=== PATIENT | male | born 1940 | race Caucasian/White ===

== ENCOUNTER → 2019-06-07 | Outpatient (CLI) | payer OTHER, BC | LOC: RAD 14:11 | DX: J44.9 Chronic obstructive pulmonary disease, unspecified (principal); J98.4 Other disorders of lung; I51.7 Cardiomegaly ==

== ENCOUNTER → 2019-06-27 | Outpatient (CLI) | payer OTHER, BC | LOC: CAT 12:38 | DX: J43.9 Emphysema, unspecified (principal) ==

== ENCOUNTER → 2019-11-24 | Outpatient (CLI) | payer OTHER, BC | LOC: SJCVCIMAG 09:01 | DX: I45.19 Other right bundle-branch block (principal); I08.0 Rheumatic disorders of both mitral and aortic valves; I25.10 Atherosclerotic heart disease of native coronary artery without angina pectoris; E11.65 Type 2 diabetes mellitus with hyperglycemia; I11.0 Hypertensive heart disease with heart failure; I50.41 Acute combined systolic (congestive) and diastolic (congestive) heart failure; E78.00 Pure hypercholesterolemia, unspecified; J44.9 Chronic obstructive pulmonary disease, unspecified; I25.5 Ischemic cardiomyopathy ==

== ENCOUNTER → 2020-04-12 | Outpatient (CLI) | payer OTHER, BC | LOC: SJCVCIMAG 09:32 | PROVIDERS: ATTEND Internal Medicine Cardiovascular Disease | DX: I25.10 Atherosclerotic heart disease of native coronary artery without angina pectoris (principal); I49.3 Ventricular premature depolarization; R00.0 Tachycardia, unspecified; E78.00 Pure hypercholesterolemia, unspecified; E11.65 Type 2 diabetes mellitus with hyperglycemia; I08.0 Rheumatic disorders of both mitral and aortic valves; I10 Essential (primary) hypertension; Z99.81 Dependence on supplemental oxygen; Z79.899 Other long term (current) drug therapy; Z87.891 Personal history of nicotine dependence ==

== ENCOUNTER 2020-07-24 16:25 | Inpatient (IN) | payer OTHER, BC ==
[~2020-07-24] VITALS: Ht 172.7 cm; Wt 95.3 kg
--- NOTE | ~2020-07-24 | HC ---
[facility] [place] [address] CONSULTATION Name: LUIS PITTS Room #: 208-P ADM IN M.R.#: [id number] Admission: 07/24/20 Attend Phys: Tom Cruz Discharge: Date of : 42 Report #: [id number] THIS REPORT FOR: cc: Charlie Chao MD, Cabot L. MD Forman, John M. MD ~ DATE OF SERVICE: 07/26/2020 We were asked by Dr. Tom Cruz to see the patient. HISTORY OF PRESENT ILLNESS: The patient is a 79-year-old admitted through the Emergency Department on 07/24/2020 with shortness of breath. The patient at that time had a 4-day history of shortness of breath with exertion and fatigue. In the Emergency Department, the patient was found to be in atrial fibrillation with rapid ventricular response and he was started on a diltiazem drip with a bolus. Chest x-ray in the Emergency Department showed cardiomegaly and chronic pleural parenchymal scarring, greatest in the right lower lobe of lung identical to a study done in 2019. Since admission, the patient has been seen by Cardiology. A transthoracic echo has been done that shows a tight aortic stenosis with an aortic valve area of 0.7 cm and a mean gradient of 23 mmHg. Left ventricular ejection fraction is approximately 40-45%. The patient also has some chronic renal insufficiency with a creatinine in the 1.8-2.2 range. PAST MEDICAL HISTORY: Significant for chronic obstructive pulmonary disease, chronic hypoxic respiratory failure requiring 6 liters nasal cannula at home, diabetes mellitus type 2, atrial fibrillation, aortic stenosis, hyperlipidemia and prostatic hypertrophy. PAST SURGICAL HISTORY: The patient states that at age 19, he had ligation of a patent ductus arteriosus. SOCIAL HISTORY: The patient lives with his in [place]. He has a [id number] smoking history. ALLERGIES: None known. MEDICATIONS AT HOME: Includes albuterol, finasteride, nebivolol, prednisone, Spiriva, rosuvastatin, tamsulosin, diltiazem. REVIEW OF SYSTEMS: I agree with the review of systems as dictated in other notes. GENERAL: The patient denies fever or chills. EYES: Denies vision change. [address] [address] CONSULTATION Name: LUIS PITTS Room #: 208-P [facility] IN .R.#: [id number] Admission: 07/24/20 Attend Phys: Tom Cruz Discharge: Date of : 42 Report #: [id number] HEENT: Denies headache, sore throat, nasal discharge. RESPIRATORY: As mentioned, short of breath. CARDIAC: As mentioned, fatigue. The patient states his heart was racing, but he did not feel it. GASTROINTESTINAL: Denies nausea, vomiting, diarrhea, or blood. GENITOURINARY: Denies urgency, frequency, blood. MUSCULOSKELETAL: Denies bone or joint pain. SKIN: Denies rash or infection. NEUROLOGIC: Denies motor or sensory dysfunction. ENDOCRINE: Denies goiter. Denies tremor. HEMATOLOGIC: Denies bruisability or bleeding. PSYCHIATRIC: Denies depression, anxiety. PHYSICAL EXAMINATION: VITAL SIGNS: Temperature 36.5, heart rate 106, blood pressure 136/72, respiratory rate 18, pulse ox 97 with 10 liters flow. GENERAL: The patient is sitting in a chair. He has mild shortness of breath at rest and seems to get winded after speaking for any length of time. HEENT: No scleral icterus, no arcus. NECK: I hear no bruit, no mass. CHEST: Expiratory wheeze bilaterally. HEART: Rhythm, atrial fibrillation, grade 2-3 aortic systolic murmur in the right upper sternal border. ABDOMEN: Soft, no mass, no tenderness. EXTREMITIES: Peripheral edema. No clubbing or cyanosis. MUSCULOSKELETAL: No bone or joint asymmetry or deformity. SKIN: No rash or infection. PSYCHIATRIC: Oriented x 3. Shows insight into problem. NEUROLOGIC: No motor or sensory dysfunction. The patient states his swallowing test was normal. ASSESSMENT: The patient has important aortic stenosis with unknown coronary artery status. The patient is on baseline high flow oxygen at home and as such would be a high risk surgical candidate. This would be disorder. The patient to be evaluated for transarterial valve replacement, which we do not currently off for a week and at least explore getting the preoperative studies for that procedure; however, and discuss prospects for referring the patient. In general, a CT angiogram of the heart and a CTA of the chest, abdomen and pelvis will be needed for screening with possible need for arteriography. We will discuss this with Cardiology. [address] [address] CONSULTATION Name: LUIS PITTS Room #: 208-P ADM IN M.R.#: [id number] Admission: 07/24/20 Attend Phys: Tom Cruz Discharge: Date of : 42 Report #: [id number] Thank you for the consult. By: [id number] Sudheer Brown MD /nt
[2020-07-24 16:26] VITALS: BP 110/60
[2020-07-24] MEDS ORDERED: PREDNISONE 20 M20 M1 PO (16:48)
[2020-07-24] MEDS ORDERED: FINASTERIDE5 MG PO (16:48)
[2020-07-24] MEDS ORDERED: SPIRIVA18 MCG INH (16:48)
[2020-07-24] MEDS ORDERED: PREDNISONE 5 MG5 M1 PO (16:48)
[2020-07-24] MEDS ORDERED: ROSUVASTATIN CA20 MG PO (16:48)
[2020-07-24] MEDS ORDERED: BYSTOLIC 5 MG5 M1 PO (16:48)
[2020-07-24] MEDS ORDERED: ALBUTEROL2.5 MG/3 M INH (16:48)
[2020-07-24] MEDS ORDERED: TAMSULOSIN HCL0.4 MG PO (16:49)
[2020-07-24] MEDS ORDERED: DILTIAZEM 24HR360 M1 PO (16:53)
[2020-07-24 16:57] LABS: ABSOLUTE NEUTROPHILS 13.5 thou/uL (1.4-8.2); BASOPHILS 0.2 % (0.0-2.0); EOSINOPHILS 0.1 % (0.0-3.0); HEMATOCRIT 37.3 % (42.0-52.0); HEMOGLOBIN 11.8 gm/dL (14.0-18.0); LYMPHOCYTES 1.9 % (24.0-44.0); MCH 29.5 pg (26.0-34.0); MCHC 31.6 g/dL (28.0-37.0); MCV 93.3 fL (80.0-100.0); MONOCYTES 3.9 % (1.0-8.0); PLATELET COUNT 192 thou/uL (150-400); POLYS 93.9 % (36.0-66.0); RBC 3.99 mil/uL (4.50-6.00); RDW 15.3 % (10.5-14.5); WBC 14.4 thou/uL (4.0-11.0)
[2020-07-24 17:12] LABS: CALCIUM 9.7 mg/dL (8.5-10.1); CREATININE 2.2 mg/dL (0.7-1.3)
[2020-07-24 17:21] LABS: TROPONIN-I 0.08 ng/mL (<0.06)
[2020-07-24 18:39] LABS: URINE BILIRUBIN NEGATIVE (Negative); URINE BLOOD 1+ (Negative); URINE CLARITY CLEAR; URINE COLOR YELLOW; URINE GLUCOSE-RANDOM* 2+ (Negative); URINE KETONES NEGATIVE (Negative); URINE LEUKOCYTES-REFLEX NEGATIVE (Negative); URINE NITRITE-REFLEX NEGATIVE (Negative); URINE PROTEIN (DIPSTICK) 2+ (Negative); URINE SPECIFIC GRAVITY 1.025 (1.005-1.035); URINE UROBILINOGEN 0.2 E.U./dl (0.2-1.0)
[2020-07-24 18:48] LABS: CASTS None Seen /LPF (None Seen); CRYSTALS None Seen /LPF (None Seen); SQUAMOUS None Seen /LPF (0-3); URINE RBC 3-10 Few /HPF (0-2); URINE WBC-REFLEX 0-5 Rare /HPF (0-5)
[2020-07-24 23:55] LABS: APTT 25.7 Seconds (24.5-32.8); INR 1.1; PROTIME 11.4 Seconds (9.3-11.4)
[2020-07-25 06:59] VITALS: BP 118/72
[2020-07-25 07:02] LABS: HEMATOCRIT 34.3 % (42.0-52.0); MCH 29.7 pg (26.0-34.0); MCHC 31.9 g/dL (28.0-37.0); MCV 93.1 fL (80.0-100.0); RBC 3.68 mil/uL (4.50-6.00); RDW 15.3 % (10.5-14.5)
--- NOTE | 2020-07-25 07:19 | EKG ---
[address] [address] ELECTROCARDIOGRAM REPORT Name: LUIS PITTS Room #: 170-6 ADM IN M.R.#: [id number] Admission: 07/24/20 Attend Phys: Christie Britton MD Discharge: Date of : 42 Report #: [id number] [facility] ED Test Date: 2020-07-24 Test Time: 16:25:32 Pat Name: LUIS PITTS Department: Room: 170 Gender: M Sandblast Or Shotblast Equipment Tender: IVAN : 1940 Requested By: James Marc Order Number: [id number] MD: Chris Minor Measurements Intervals [place] Rate: 145 P: WA: QRS: 105 QRSD: 122 T: -48 QT: 343 QTc: 533 Interpretive Statements AFIB IVCD, consider atypical RBBB No previous ECG available for comparison Electronically Signed On 07-25-2020 7:18:53 CAGE OPERATOR by Chris Minor [email or web address] <ELECTRONICALLY SIGNED> By: Chris Minor MD, [facility] 07/25/20 0718 1625 1625 Chris Minor MD, FACC /EPI
[2020-07-25 07:22] LABS: CALCIUM 9.1 mg/dL (8.5-10.1); CREATININE 1.8 mg/dL (0.7-1.3); MAGNESIUM 1.9 mg/dL (1.8-2.4); POTASSIUM 3.4 mmol/L (3.5-5.1); TROPONIN-I 0.12 ng/mL (<0.06)
[2020-07-25 08:15] VITALS: BP 94/65
[2020-07-25 08:49] VITALS: BP 108/64
[2020-07-25 11:39] VITALS: BP 92/62
--- NOTE | 2020-07-25 13:01 | 2DMMODE ---
[facility] [place] [address] 2 D/M-MODE ECHOCARDIOGRAM Name: HONGBONNIEМАРИНА JOYCE Room #: 208-P ADM IN M.R.#: [id number] Admission: 07/24/20 Attend Phys: Tom Cruz Discharge: Date of : 42 Report #: [id number] THIS REPORT FOR: cc: Charlie Chao MD, Cabot L. MD Santiago, Patrick MD [facility] ~ APPROVED REPORT Study performed: 07/25/2020 10:31:03 EXAM: Comprehensive 2D, Doppler, and color-flow Echocardiogram Patient Location: Bedside Room #: 208 Status: routine BSA: 2.07 HR: 112 bpm BP: 107/72 mmHg Rhythm: Atrial Fibrillation Other Information Study Quality: Adequate Technically limited study due to COPD, restless patient, body habitus. Indications Short of breath, Afib. (Heart rate ranged from 100-130bpm during exam) Hx: Aortic stenosis, CAD, COPD, HTN, HLP, DM. 2D Dimensions RVDd: 35.32 mm IVSd: 11.00 (7-11mm) LVOT Diam: 22.00 (18-24mm) LVDd: 42.00 mm PWd: 12.00 (7-11mm) LVDs: 39.00 (25-40mm) Aortic Root: 36.00 mm Volumes Left Atrial Volume (Systole) Single Plane 4CH: 70.31 mL Single Plane 2CH: 82.69 mL LA ESV Index: 38.00 mL/m2 Aortic Valve AoV Peak Jordan.: 3.15 m/s [facility] [address] [place] [address] 2 D/M-MODE ECHOCARDIOGRAM Name: LUIS PITTS Room #: 208-P [facility] IN [facility].#: [id number] Admission: 07/24/20 Attend Phys: Tom Beckford Oct Discharge: Date of : 42 Report #: [id number] AO Peak Gr.: 40.55 mmHg LVOT Max P.51 mmHg AO Mean Gr.: 23.35 mmHg AO V2 Mean: 2.27 m/s LVOT Max V: 0.61 m/s AO V2 VTI: 56.23 cm KEITH Vmax: 0.74 cm2 Mitral Valve MV Decel. Time: 258.92 ms MV E Max Jordan.: 1.59 m/s MV PHT: 76.81 ms MVA (PHT): 2.86 cm2 Pulmonary Valve PV Peak Jordan.: 0.68 m/s PV Peak Gr.: 1.85 mmHg Tricuspid Valve TR Peak Jordan.: 2.69 m/s RAP Estimate: 15.00 mmHg TR Peak Gr.: 29.02 mmHg PA Pressure: 44.00 mmHg Left Ventricle The left ventricle is normal size. Mild concentric left ventricular hypertrophy. Left ventricular systolic function is mild to moderately decreased. LVEF is 40-45%. This study is not technically sufficient to allow evaluation of the LV diastolic function. Right Ventricle The right ventricle is normal size. Right ventricle is hypokinetic. Atria Mild biatrial enlargement. Aortic Valve Aortic valve is heavily calcified. Trace aortic regurgitation. There is severe valvular aortic stenosis. Calculated aortic valve area is 0.7 cm2 with maximum pressure gradient of 41 mmHg and mean pressure gradient of 23 mmHg. Mitral Valve Mitral valve leaflets are thickened. Heavily calcified annulus. Mild mitral regurgitation. Mild mitral stenosis with a maximum pressure gradient of 11 mmHg and mean pressure gradient of 5 mmHg. Tricuspid Valve The tricuspid valve is normal in structure. Mild tricuspid [facility] [address] [place] [address] 2 D/M-MODE ECHOCARDIOGRAM Name: CARYLMARLALUIS Room #: 208-P [facility] IN M.R.#: [id number] Admission: 07/24/20 Attend Phys: Tom Monaco Discharge: Date of : 42 Report #: [id number] regurgitation. Estimated PAP is 40-45mmHg. Pulmonic Valve The pulmonary valve is normal in structure. Mild pulmonic regurgitation. Great Vessels The aortic root is normal in size. Ascending aorta is not well visualized. IVC is dilated and collapses <50% with inspiration. Pericardium Small posterior pericardial effusion. <Conclusion> Normal left atrial size/wall thickness Global hypokinesis ejection fraction 40-45% Normal right ventricle size/function Normal atrial size Severely calcified aortic valve Severe-critical aortic valve stenosis aortic valve area estimated 0.7 cm Mean aortic valve mean gradient estimated at 23 mmHg. Suspect lower expected mean gradient due to diminished LV systolic function. Mild mitral valve insufficiency IVC dilated but responsive to respiration Minimalposterior pericardial effusion <ELECTRONICALLY SIGNED> By: Chris Minor MD, FACC 07/25/20 1301 1301 1301 Chris Minor MD, FACC /INF
[2020-07-25 15:13] VITALS: BP 99/53
--- NOTE | 2020-07-25 16:59 | NUR ---
Met with patient who admits for AFIB/RVR. Patient uses power scooter. Patient lives in independent home with . He has home oxygen via [employer] at 5 liters at home. Patient cont to drive. Patients PCP Dr Zhanna Guerra. Casemgt following.
--- NOTE | 2020-07-25 18:28 | NUR ---
PT TO THE UNIT FROM THE ER THIS AM - OREINTED TO ROOM AND BEDSPACE. ASSESSMENT CHARTED - MEDS PER MAR - ACCUCHECKS COVERED PER SSI. AMMIO GIVEN AT 1MG X 8 HOURS THEN TUNRED DOWN TO 0.5 MGS ORDERED - PT HEART RATE REMAINED ELEVATED DRILL OPERATOR PNEUMATIC CALLED AND DIOXIN GIVEN ORDERED. PT HEART DOWN IN THE 10O'S TO 110"S DOES ELEVATED WITH ACTIVITY TO 130 BUT COMES BACK DOWN. PT WITH INCREASE 02 NEEDS FROM HOME USAGE - SOB WITH MIN EXERTION. APPT 32 HEPARIN DRIP ADJUSTED PER PROTOCOL. NEXT APPT IS AT 2200 THIS EVENING. FCO DIET AND FLUIDS. NO CO'S OF PAIN OR NAUSEA. HAS BEEN UP IN THE CHAIR FOR MOST OF THE DAY. NO CO'S TA THE PRESENT TIME.
[2020-07-25 19:20] VITALS: BP 138/82
[2020-07-26 01:44] LABS: BE(vivo) 1.3 mmol/L (-2 to +3); HCO3 27.6 mmol/L (22.0-26.0); PCO2 50.8 mmHg (35.0-45.0); PO2 65.1 mmHg (80.0-100.0); pH 7.353 (7.360-7.450); sO2 91.6 % (92.0-98.0)
[2020-07-26 03:50] VITALS: BP 122/72
--- NOTE | 2020-07-26 06:25 | NUR ---
ASSUMED PATIENT CARE AT 1845. UPON INITIAL ASSESSMENT NURSE CONCERNED DUE TO PATIENTS BREATHING AND ACCELERATED ATRIAL FIB. ORDERS RECEIVED FOR ABG, CHEST XRAY, AND MEDICATIONS FOR TACHYCARDIA. PATIENTS ABG SHOWED HYPOXIA SO PATIENT PLACED ON BIPAP. PATIENT WAS NOT ABLE TO TOLERATE BIPAP SO PATIENT SWITCHED TO VENTI MASK. OXYGEN SATURATIONS IMPROVED WITH DIFFERENT DELIVERY SYSTEMS AND MEDICATIONS. PATIENT REMAINS IN ATRIAL FIB, BUT HEART RATE IS MUCH IMPROVED. ALERT AND ORIENTED THROUGHOUT SHIFT, PATIENT IS ABLE TO PARTICIPATE IN CARE AND CALL APPROPRIATELY FOR NEEDS. UP MULTIPLE TIMES WITH ASSISTANCE INCIDENT FREE. CONSULT PLACED TO PROGRAM SERVICES ASSISTANT THIS MORNING. PATIENT IS RESTING IN RECLINER WITH VITAL SIGNS CURRENTLY STABLE. CONTINUE PLAN OF CARE.
[2020-07-26 08:13] VITALS: BP 136/72
[2020-07-26 11:37] VITALS: BP 123/50
[2020-07-26 13:43] LABS: HEMATOCRIT 37.4 % (42.0-52.0); HEMOGLOBIN 11.9 gm/dL (14.0-18.0); MCH 29.8 pg (26.0-34.0); MCHC 31.7 g/dL (28.0-37.0); MCV 93.8 fL (80.0-100.0); RBC 3.98 mil/uL (4.50-6.00); RDW 15.2 % (10.5-14.5); WBC 8.2 thou/uL (4.0-11.0)
[2020-07-26 13:49] LABS: CALCIUM 9.3 mg/dL (8.5-10.1); CREATININE 1.9 mg/dL (0.7-1.3); POTASSIUM 3.8 mmol/L (3.5-5.1)
[2020-07-26 16:00] VITALS: BP 106/68
--- NOTE | 2020-07-26 16:35 | NUR ---
ASSESSMENT CHARTED - MEDS PER OCT -- HEPARIN D/C ORDERED. AMMIO CONTINUES. REFUSED LUNCH STATING THAT HE WAS NOT HUNGRY THERE FOR DID NOT WANT INSULIN GIVEN. PT HAD VIDEO SWALLOW COMPLETED TODAY - PLACED ON [facility] ALTERED DIET - PATIENT WITH COUGHING WHEN EATING THIS AM. NO CO'S OF PAIN OR NAUSEA. SEEN BY PHYS THERAPY VERY SOB WITH MIN EXERTION. PT APPEARING FORGET/CONFUSED AT TIMES MAKES "RANDOM" COMMENTS. PT TO Have lab and chest xray in the am. no co's at the present time.
[2020-07-26 19:00] VITALS: BP 92/77
--- NOTE | 2020-07-27 01:54 | NUR ---
ALERT,FORGETFUL.USES THE BIPAP AT NIGHT BUT REQUESTED TO BE BACK TO NASAL CANNULA.RT WAS INFORMED.ON AMIODARONE GTT.MONITOR SHOWS AFIB.POC CONTINUED.
[2020-07-27 04:04] LABS: HEMOGLOBIN 11.3 gm/dL (14.0-18.0); MCH 30.5 pg (26.0-34.0); MCHC 32.3 g/dL (28.0-37.0); MCV 94.5 fL (80.0-100.0); RBC 3.7 mil/uL (4.50-6.00); RDW 15.5 % (10.5-14.5); WBC 15.1 thou/uL (4.0-11.0)
[2020-07-27 04:18] LABS: CALCIUM 9.2 mg/dL (8.5-10.1); CREATININE 1.6 mg/dL (0.7-1.3); POTASSIUM 3.2 mmol/L (3.5-5.1)
[2020-07-27 04:30] VITALS: BP 119/81
[2020-07-27 08:37] VITALS: BP 129/71
[2020-07-27 11:51] VITALS: BP 116/70
[2020-07-27 15:56] VITALS: BP 108/48
--- NOTE | 2020-07-27 16:29 | NUR ---
ASSUMMED PT CARE AT APPROXIMATELY 0700. PT A&O X4, FORGETFUL AT TIMES. ASSESSMENT CHARTED. FALL PRECAUTIONS IN PLACE. PT DENIES HAVING CHEST PAIN. PT DENIES HAVING ACUTE PAIN. PT DENIES HAVING SOB. VITAL SIGNS STABLE. BLOOD SUGARS STABLE. EDUCATED PT ABOUT POC. PT STATED UNDERSTANDING AND DENIED HAVING FURTHER QUESTIONS. PT AMBULATES X1. PT UP TO CHAIR THROUGHOUT SHIFT. PT COMFORTABLE. PT DENIES HAVING FURTHER CONCERNS.
[2020-07-27 19:35] VITALS: BP 102/47
[2020-07-28 00:07] VITALS: BP 119/59
[2020-07-28 04:45] VITALS: BP 119/73
[2020-07-28 07:34] VITALS: BP 108/66
--- NOTE | 2020-07-28 07:39 | NUR ---
ASSUMED CARE OF THE PATIENT AT 1900; AOX4/CONFUSED AT TIMES; CONT/UNCONT AFIB ON THE MONITOR/CONT AMIO GTT; NO C/O OF PAIN; 6LPM NC WITH O2 IN 90s/SOB WITH ACTIVITY/REQUIRES EXTRA TIME; RESTED QUIETLY MOST OF THE NOC; PLAN IS FOR PT TO D/C TO HOME ONCE AMIO GTT COMPLETED; WILL CONTINUE MONITOR.
[2020-07-28 11:10] VITALS: BP 122/67
[2020-07-28 15:38] VITALS: BP 126/81
--- NOTE | 2020-07-28 15:50 | NUR ---
AAOX4. ODD AFFECT. RATE CONTROLLED AFIB PER TELE, AMIODARONE DRIP. SOA WITH ACTIVITY. AT BEDSIDE. FALL PRECAUTIONS IN PLACE.
[2020-07-28 19:45] VITALS: BP 109/76
[2020-07-29] VITALS (8 sets, daily range): BP systolic 105–129; BP diastolic 57–67
--- NOTE | 2020-07-29 05:03 | NUR ---
ASSUMED PATIENT CARE AT 1845. VITAL SIGNS MOSTLY STABLE WITH PATIENT REQUIRING PRN METOPROLOL FOR TACHYCARDIA. BREATHING STABLE EVIDENCED BY ASSESSMENTS AND READINGS FROM CONTINUOUS SATURATION MONITORING. PATIENT IS FULLY ORIENTED AND ABLE TO PARTICIPATE IN CARE AND CALL APPROPRIATELY FOR NEEDS. UP MULTIPLE TIMES WITH ASSISTANCE INCIDENT FREE, PATIENT IS CONSIDERED A HIGH FALL RISK. CONTINUE PLAN OF CARE.
--- NOTE | 2020-07-29 20:16 | NUR ---
PT CARE ASSUMED AT 0700. ASSESSMENTS CHARTED. MEDICATIONS CHARTED. WALLACE IV. JOE IV. SINUS RHYTHM. REQUESTS EXTERNAL MARQUEZ AT [facility]. PT ON AMIODARONE MARY. ACHS. [place].
[2020-07-30 00:43] VITALS: BP 131/72
[2020-07-30 03:00] VITALS: BP 132/81
[2020-07-30 03:52] LABS: HEMATOCRIT 37.4 % (42.0-52.0); MCH 29.8 pg (26.0-34.0); MCHC 32.1 g/dL (28.0-37.0); MCV 92.7 fL (80.0-100.0); RBC 4.04 mil/uL (4.50-6.00); RDW 15.4 % (10.5-14.5); WBC 12.6 thou/uL (4.0-11.0)
[2020-07-30 08:05] LABS: CREATININE 1.1 mg/dL (0.7-1.3); POTASSIUM 3.4 mmol/L (3.5-5.1)
[2020-07-30 08:16] VITALS: BP 114/65
--- NOTE | 2020-07-30 08:54 | NUR ---
PT HAD SOB OVERNIGHT, DESAT INTO 80s. O2 INCREASED TO 8 L AND RT NOTIFIED. START CHEST XRAY ALSO ORDERED. PT PUT ON BIPAP FOR A WHILE. CURRENTLY STABLE. WILL CONTINUE WITH RESP. ASSESSMENTS AND MONITOR VS
[2020-07-30] MEDS ORDERED: AMOX TR-K CLV1 EAC4 PO (09:04)
[2020-07-30] MEDS ORDERED: ELIQUIS5 MG PO (09:04)
[2020-07-30] MEDS ORDERED: PACERONE 200 M200 M1 PO (09:05)
[2020-07-30] MEDS ORDERED: CARDIZEM CD120 MG PO (09:05)
[2020-07-30] MEDS ORDERED: K-DUR 20 MEQ T20 MEQ PO (09:06)
[2020-07-30] MEDS ORDERED: DEMADEX20 MG PO (09:06)
--- NOTE | 2020-07-30 10:22 | NUR ---
Patient to dc home today with HH care. No preference of HH agency. Verified address, phone and PCP. DC materials planner/production planner to assist with arranging HH care.
[2020-07-30 10:54] VITALS: BP 114/65
[2020-07-30 11:20] VITALS: BP 114/65
--- NOTE | 2020-07-30 11:23 | NUR ---
ASSUMED CARE AT SHIFT, ASSESSMENT CHARTED, VSS AND AFEBRILE. DISCAHRGE AND MEDICATION INSTRCUTIONS GIVEN TO THE PATIENT AND HE VARBALIZED UNDERSTAINDG. WAITING FOR SPOUSE TO PICK PATIENT UP.
[2020-07-30 12:48] VITALS: BP 98/49
--- NOTE | 2020-07-30 16:52 | NUR ---
FAXED REFERRAL TO [facility] SPOKE WITH ENRIQUE IN ADM SHE RECEIVED AND CAN ACCEPT AT DC. PT DISCHARGING TODAY FAXED HH ORDERS TO [facility] RECEIVED CONFIRMATION AND THEY WILL ARRANGE VISITS WITH PT.
== END 2020-07-30 12:58 | disposition home health service (06) | DRG 871 ==
LOC: ER 16:25 → 2N 19:19 → EROBS 19:19 → 2N 07-25 08:30
PROVIDERS: Internal Medicine Pulmonary Disease; Nurse Practitioner; Nurse Practitioner Adult Health; Nurse Practitioner Family; ADMIT Hospitalist; ATTEND Hospitalist
DX: A41.9 Sepsis, unspecified organism (principal); J96.21 Acute and chronic respiratory failure with hypoxia; J69.0 Pneumonitis due to inhalation of food and vomit; J96.22 Acute and chronic respiratory failure with hypercapnia; N17.9 Acute kidney failure, unspecified; N39.0 Urinary tract infection, site not specified; I48.20 Chronic atrial fibrillation, unspecified; I13.0 Hypertensive heart and chronic kidney disease with heart failure and stage 1 through stage 4 chronic kidney disease, or unspecified chronic kidney disease; I50.32 Chronic diastolic (congestive) heart failure; I48.92 Unspecified atrial flutter; I25.10 Atherosclerotic heart disease of native coronary artery without angina pectoris; I35.0 Nonrheumatic aortic (valve) stenosis; E78.5 Hyperlipidemia, unspecified; N18.9 Chronic kidney disease, unspecified; E11.65 Type 2 diabetes mellitus with hyperglycemia; E78.00 Pure hypercholesterolemia, unspecified; E11.22 Type 2 diabetes mellitus with diabetic chronic kidney disease; D64.9 Anemia, unspecified; I95.9 Hypotension, unspecified; N40.0 Benign prostatic hyperplasia without lower urinary tract symptoms; Z20.828 Contact with and (suspected) exposure to other viral communicable diseases; J44.9 Chronic obstructive pulmonary disease, unspecified; Z95.1 Presence of aortocoronary bypass graft; Z79.899 Other long term (current) drug therapy; Z87.891 Personal history of nicotine dependence; Z99.81 Dependence on supplemental oxygen; Z85.51 Personal history of malignant neoplasm of bladder
CPT/HCPCS: 10081

== ENCOUNTER → 2020-08-09 | Outpatient (CLI) | payer OTHER, BC ==
[~2020-08-09] MED LIST: ALBUTEROL2.5 MG/3 M INH; AMOX TR-K CLV1 EAC4 PO; BYSTOLIC 5 MG5 M1 PO; CARDIZEM CD120 MG PO; DEMADEX20 MG PO; DILTIAZEM 24HR360 M1 PO; ELIQUIS5 MG PO; FINASTERIDE5 MG PO; K-DUR 20 MEQ T20 MEQ PO; PACERONE 200 M200 M1 PO; PREDNISONE 20 M20 M1 PO; PREDNISONE 5 MG5 M1 PO; ROSUVASTATIN CA20 MG PO; SPIRIVA18 MCG INH; TAMSULOSIN HCL0.4 MG PO
== END ==
LOC: RAD 11:41
PROVIDERS: ATTEND Internal Medicine
DX: I50.23 Acute on chronic systolic (congestive) heart failure (principal); I51.7 Cardiomegaly

== ENCOUNTER → 2020-08-13 | Outpatient (CLI) | payer OTHER, BC | LOC: SJCVC 15:43 | PROVIDERS: ATTEND Internal Medicine Cardiovascular Disease | DX: R94.31 Abnormal electrocardiogram [ECG] [EKG] (principal); I45.2 Bifascicular block; E78.00 Pure hypercholesterolemia, unspecified; I48.0 Paroxysmal atrial fibrillation; I42.8 Other cardiomyopathies; I11.0 Hypertensive heart disease with heart failure; I50.41 Acute combined systolic (congestive) and diastolic (congestive) heart failure; I35.0 Nonrheumatic aortic (valve) stenosis; J43.9 Emphysema, unspecified; Z99.81 Dependence on supplemental oxygen; Z79.899 Other long term (current) drug therapy; Z87.891 Personal history of nicotine dependence ==

== ENCOUNTER → 2020-10-15 | Outpatient (CLI) | payer OTHER, BC | LOC: RAD 13:15 | PROVIDERS: ATTEND Internal Medicine | DX: J44.9 Chronic obstructive pulmonary disease, unspecified (principal); J92.9 Pleural plaque without asbestos ==

== ENCOUNTER → 2021-02-13 | Outpatient (CLI) | payer OTHER, BC | LOC: SJCVC 14:51 | PROVIDERS: ATTEND Internal Medicine Cardiovascular Disease | DX: R94.31 Abnormal electrocardiogram [ECG] [EKG] (principal); I45.2 Bifascicular block; R00.0 Tachycardia, unspecified; I25.10 Atherosclerotic heart disease of native coronary artery without angina pectoris; E78.00 Pure hypercholesterolemia, unspecified; I48.0 Paroxysmal atrial fibrillation; I42.8 Other cardiomyopathies; I35.0 Nonrheumatic aortic (valve) stenosis; J96.10 Chronic respiratory failure, unspecified whether with hypoxia or hypercapnia; E11.9 Type 2 diabetes mellitus without complications; I50.40 Unspecified combined systolic (congestive) and diastolic (congestive) heart failure; N40.0 Benign prostatic hyperplasia without lower urinary tract symptoms; E78.2 Mixed hyperlipidemia; J43.9 Emphysema, unspecified; I42.9 Cardiomyopathy, unspecified; Z98.890 Other specified postprocedural states; Z99.81 Dependence on supplemental oxygen; Z88.8 Allergy status to other drugs, medicaments and biological substances; Z79.899 Other long term (current) drug therapy; Z87.891 Personal history of nicotine dependence; Z82.49 Family history of ischemic heart disease and other diseases of the circulatory system ==